=== PATIENT | male | born 1965 | race Caucasian/White ===

== ENCOUNTER 2017-04-20 11:40 | Inpatient (IN) | payer OTHER ==
[2017-04-20 12:54] VITALS: BMI 20.5
--- NOTE | 2017-04-20 14:31 | HP ---
CIWA Score - CIWA Score Nausea/Vomitin Muscle Tremors: 3 Anxiety: 3 Agitation: 3 Paroxysmal Sweats: 1-Minimal Palms Moist Orientation: 0-Oriented Tacttile Disturbances: 1-Very Mild Itch/Numbness Auditory Disturbances: 1-Very Mild Visual Disturbances: 1-Very Mild Sensitivity Headache: 2-Mild CIWA-Ar Total Score: 18 Admission ROS BHS - HPI Chief Complaint: i need help to stop drinking alcohol Allergies/Adverse Reactions: Allergies Allergy/AdvReac Type Severity Reaction Status Date / Time No Known Allergies Allergy Verified 04/20/17 13:16 History of Present Illness: this 51 years old male with alcohol dependence,seeking detox,never been ib detox before need help to stop drinking Exam Limitations: No Limitations - Ebola screening Have you traveled outside of the country in the last 21 days: No Have you been sick,other than usual withdrawal symptoms: No - Review of Systems Constitutional: Changes in sleep EENT: reports: No Symptoms Reported, Nose Congestion Respiratory: reports: No Symptoms reported Cardiac: reports: No Symptoms Reported GI: reports: Nausea, Abdominal cramping : reports: No Symptoms Reported Musculoskeletal: reports: Back Pain, Muscle Pain Integumentary: reports: Dryness Neuro: reports: Tremors Endocrine: reports: No Symptoms Reported Hematology: reports: No Symptoms Reported Psychiatric: reports: No Sypmtoms Reported Patient History - Patient Medical History Hx Anemia: Yes (no med) Hx Asthma: No Hx Chronic Obstructive Pulmonary Disease (COPD): No Hx Cancer: No Hx Cardiac Disorders: No Hx Congestive Heart Failure: No Hx Hypertension: No Hx Hypercholesterolemia: No Hx Pacemaker: No HX Cerebrovascular Accident: No Hx Seizures: No Hx Diabetes: No Hx Gastrointestinal Disorders: No Hx Liver Disease: No Hx Genitourinary Disorders: No Hx Sexually Transmitted Disorders: No Hx Renal Disease (ESRD): No Hx Thyroid Disease: No Hx Human Immunodeficiency Virus (HIV): No (hiv negative in 2010) Hx Hepatitis C: No Hx Depression: No Hx Suicide Attempt: No Hx Bipolar Disorder: No Hx Schizophrenia: No Other Medical History: no suicidal,no homicidal - Patient Surgical History Past Surgical History: No Hx Neurologic Surgery: No Hx Cataract Extraction: No Hx Cardiac Surgery: No Hx Lung Surgery: No Hx Breast Surgery: No Hx Breast Biopsy: No Hx Abdominal Surgery: No Hx Appendectomy: No Hx Cholecystectomy: No Hx Genitourinary Surgery: No Hx Section: No Hx Orthopedic Surgery: No Anesthesia Reaction: No - PPD History Previous Implant?: Yes Documented Results: Negative w/o proof Implanted On Prior [facility] Admission?: No PPD to be Administered?: Yes - Smoking Cessation Smoking history: Former smoker Have you smoked in the past 12 months: No If you are a former smoker, when did you quit?: 20 yrs. ago Hx Chewing Tobacco Use: No Initiated information on smoking cessation: No - Substance & Tx. History Hx Alcohol Use: Yes Hx Substance Use: No Substance Use Type: Alcohol Hx Substance Use Treatment: No - Substances Abused Alcohol-beer/vodka/rum Route: Oral Frequency: Daily Amount used: 3-6 pks./1 qt. Age of first use: 12 Date of Last Use: 04/20/17 Family Disease History - Family Disease History Family History: Denies Admission Physical Exam [facility] - Vital Signs Vital Signs: Vital Signs - 24 hr 04/20/17 12:52 Temperature 97.4 F L Pulse Rate 86 Respiratory 20 Rate Blood Pressure 118/79 - Physical General Appearance: Yes: Moderate Distress, Tremorous, Irritable, Sweating, Anxious HEENTM: Yes: Normal ENT Inspection, BRITTANY, Pharynx Normal Respiratory: Yes: Lungs Clear, Normal Breath Sounds, No Respiratory Distress Neck: Yes: Within Normal Limits Breast: Yes: Within Normal Limits Cardiology: Yes: Within Normal Limits, Regular Rhythm, Regular Rate, S1, S2 Abdominal: Yes: Within Normal Limits, Normal Bowel Sounds, Non Tender, Flat, Soft Genitourinary: Yes: Within Normal Limits Back: Yes: Muscle Spasm Musculoskeletal: Yes: full range of Motion, Back pain, Muscle Pain Extremities: Yes: Normal Range of Motion, Tremors Neurological: Yes: technician II-XII NML intact, Alert, Motor Strength 5/5 Integumentary: Yes: Dry Lymphatic: Yes: Within Normal Limits - Diagnostic (1) Alcohol dependence with uncomplicated withdrawal Current Visit: Yes Status: Acute Cleared for Admission [facility] - Detox or Rehab [facility] Level of Care: Medically Managed Detox Regimen/Protocol: Librium [facility] Breath Alcohol Content Breath Alcohol Content: 0.189 Urine Drug Screen - Results Drug Screen Negative: Yes
[2017-04-20] MEDS ORDERED: MAG HYDROX/AL HYDROX/SIMETH 30 ML UNIT-DOSE CUP PO PRN (14:39)
[2017-04-20] MEDS ORDERED: diphenhydrAMINE HCL 50 MG CAPSULE PO PRN (14:39)
[2017-04-20] MEDS ORDERED: MENTHOL/PHENOL 1 EACH UD MM PRN (14:39)
[2017-04-20] MEDS ORDERED: MAGNESIUM CITRATE 300 ML BOTTLE PO PRN (14:39)
[2017-04-20] MEDS ORDERED: ACETAMINOPHEN 325 MG TABLET (FP) PO PRN (14:39)
[2017-04-20] MEDS ORDERED: hydrOXYzine PAMOATE 50 MG CAPSULE (FP) PO PRN (14:39)
[2017-04-20] MEDS ORDERED: LOPERAMIDE HCL 2 MG CAPSULE PO PRN (14:39)
[2017-04-20] MEDS ORDERED: guaiFENesin/D-METHORPHAN HB 10 ML UNIT-DOSE CUPS PO PRN (14:39)
[2017-04-20] MEDS ORDERED: IBUPROFEN 400 MG TABLET (FP) PO PRN (14:39)
[2017-04-20] MEDS ORDERED: P-EPHED 60MG/TRIPROLIDI 2.5MG TABLET PO PRN (14:39)
[2017-04-20] MEDS ORDERED: MAGNESIUM HYDROX 2400MG/30ML ORAL SUSPENSION 30 ML CUP PO PRN (14:39)
[2017-04-20] MEDS: chlordiazePOXIDE HCL 25 MG CAPSULE PO PRN (15:25)
[2017-04-20 17:23] LABS: MCH 21.3 pg (25.7-33.7); MCHC 31.8 g/dl (32.0-35.9); MEAN PLT VOLUME 7.7 fl (7.5-11.1); PLATELET COUNT 222 K/MM3 (134-434); RDW 20.2 % (11.9-15.9); WHITE BLOOD COUNT 3.8 K/mm3 (4.0-10.0)
[2017-04-20 17:26] LABS: URINE APPEARANCE CLEAR; URINE BILIRUBIN NEGATIVE (NEGATIVE); URINE BLOOD NEGATIVE (NEGATIVE); URINE COLOR STRAW; URINE GLUCOSE (UA) NEGATIVE (NEGATIVE); URINE KETONE NEGATIVE (NEGATIVE); URINE LEUK ESTERASE NEGATIVE (NEGATIVE); URINE NITRITE NEGATIVE (NEGATIVE); URINE PROTEIN NEGATIVE (NEGATIVE); URINE UROBILINOGEN NEGATIVE mg/dL (0.2-1.0)
[2017-04-20] MEDS: chlordiazePOXIDE HCL 25 MG CAPSULE PO SCH ×2 (17:26→22:10)
[2017-04-20 17:48] LABS: ALBUMIN 3.3 g/dl (3.4-5.0); ALK PHOS 84 U/L (45-117); ANION GAP 6 (8-16); CALCIUM 8.1 mg/dL (8.5-10.1); CO2 33 mmol/L (21-32); GLUCOSE,RANDOM 92 mg/dL (74-106); SGOT/AST 37 U/L (15-37)
[2017-04-20 17:49] LABS: BILIRUBIN,TOTAL 1.5 mg/dL (0.2-1.0); CREATININE 0.7 mg/dL (0.7-1.3); SGPT/ALT 28 U/L (12-78); TOT PROT 7.3 g/dl (6.4-8.2)
[2017-04-20 21:29] LABS: HIV 1 & 2 AB NEGATIVE; HIV 1 AGp24 NEGATIVE
[2017-04-20 21:34] LABS: HYPOCHROMIA 2+
[2017-04-20 21:35] LABS: ANISOCYTOSIS 1+; MICROCYTOSIS 1+; PLATELET ESTIMATE ADEQUATE (NORMAL); POIKILOCYTOSIS 1+
[2017-04-20] MEDS: THIAMINE HCL 100 MG TABLET (FP) PO SCH (22:10)
[2017-04-21] MEDS: chlordiazePOXIDE HCL 25 MG CAPSULE PO PRN (02:37)
[2017-04-21] MEDS: chlordiazePOXIDE HCL 25 MG CAPSULE PO SCH ×4 (06:30→22:08)
--- NOTE | 2017-04-21 10:31 | PN ---
[facility] CIWA - CIWA Score Nausea/Vomitin-Int. Nausea w/Dry Heave Muscle Tremors: 4-Moderate,w/Arms Extend Anxiety: 4-Mod. Anxious/Guarded Agitation: 4-Moderately Restless Paroxysmal Sweats: 3 Orientation: 0-Oriented Tacttile Disturbances: 1-Very Mild Itch/Numbness Auditory Disturbances: 0-None Visual Disturbances: 0-None Headache: 1-Very Mild CIWA-Ar Total Score: 21 S Progress Note (SOAP) Subjective: nausea, sweats, itnerrupted sleep, anxiety, tremros, diarrhea, GERD, Objective: 04/21/17 10:29 Vital Signs - 24 hr 04/20/17 04/20/17 04/20/17 12:52 15:50 18:27 Temperature 97.4 F L 98.2 F 98.2 F Pulse Rate 86 93 H 86 Respiratory 20 18 18 Rate Blood Pressure 118/79 124/79 116/70 04/20/17 04/21/17 04/21/17 22:02 02:55 06:36 Temperature 97.5 F L 96.1 F L Pulse Rate 94 H 96 H 54 L Respiratory 20 18 16 Rate Blood Pressure 151/91 140/75 04/21/17 04/21/17 07:30 10:00 Temperature 96.8 F L Pulse Rate 74 78 Respiratory 18 18 Rate Blood Pressure 139/74 Laboratory Tests 04/20/17 04/20/17 04/20/17 14:00 14:00 14:00 WBC 3.8 L RBC 4.47 Hgb 9.5 L Hct 29.9 L MCV 67.0 L MCH 21.3 L MCHC 31.8 L RDW 20.2 H Plt Count 222 MPV 7.7 Hypochromia 2+ Platelet Estimate Adequate Poikilocytosis 1+ Basophilic Stippling Occasional Anisocytosis 1+ Microcytosis 1+ Sodium 144 Potassium 4.1 Chloride 105 Carbon Dioxide 33 H Anion Gap 6 L BUN 6 L Creatinine 0.7 Creat Clearance w eGFR > 60 Random Glucose 92 Calcium 8.1 L Total Bilirubin 1.5 H AST 37 ALT 28 Alkaline Phosphatase 84 Total Protein 7.3 Albumin 3.3 L Urine Color Urine Appearance Urine pH Ur Specific [place] Urine Protein Urine Glucose (UA) Urine Ketones Urine Blood Urine Nitrite Urine Bilirubin Urine Urobilinogen Ur Leukocyte Esterase HIV 1&2 Antibody Screen Negative HIV P24 Antigen Negative 04/20/17 15:00 WBC RBC Hgb Hct MCV MCH MCHC RDW Plt Count MPV Hypochromia Platelet Estimate Poikilocytosis Basophilic Stippling Anisocytosis Microcytosis Sodium Potassium Chloride Carbon Dioxide Anion Gap BUN Creatinine Creat Clearance w eGFR Random Glucose Calcium Total Bilirubin AST ALT Alkaline Phosphatase Total Protein Albumin Urine Color Straw Urine Appearance Clear Urine pH 6.0 Ur Specific [place] <= 1.005 Urine Protein Negative Urine Glucose (UA) Negative Urine Ketones Negative Urine Blood Negative Urine Nitrite Negative Urine Bilirubin Negative Urine Urobilinogen Negative Ur Leukocyte Esterase Negative HIV 1&2 Antibody Screen HIV P24 Antigen Assessment: 04/21/17 10:30 withdrawal sx, labs noted, aneami, hyperbiliruginemia, low WBC, no bleeding noted Plan: cont detox, fluids, encourage ambulation, iron supplements and ensure, repeat labs
[2017-04-21] MEDS: PRENATAL VITAMINS W/ FOLIC ACID TABLET (FP) PO SCH (10:39)
[2017-04-21] MEDS: PANTOPRAZOLE 40 MG TABLET (FP) PO SCH (12:10)
[2017-04-21] MEDS: FERROUS SO4 325 MG TABLET (FP) PO SCH ×2 (12:10→17:16)
--- NOTE | 2017-04-21 12:44 | EKG ---
Test Reason : Blood Pressure : / mmHG Vent. Rate : 081 BPM Atrial Rate : 081 BPM P-R Int : 140 ms QRS Dur : 096 ms QT Int : 400 ms P-R-T Axes : 043 041 053 degrees QTc Int : 464 ms NORMAL SINUS RHYTHM NORMAL ECG NO PREVIOUS ECGS AVAILABLE Confirmed by BUDDY SANCHEZ, VICTORINA ([id number]) on 04/21/2017 12:43:59 PM Referred By: Confirmed By:VICTORINA GOODWIN MD
[2017-04-21] MEDS: ZOLPIDEM TARTRATE 10 MG TABLET (PARK CARE ONLY) PO PRN (22:07)
[2017-04-21] MEDS: THIAMINE HCL 100 MG TABLET (FP) PO SCH (22:07)
[2017-04-22] MEDS: chlordiazePOXIDE HCL 25 MG CAPSULE PO SCH ×2 (06:14→11:04)
[2017-04-22] MEDS: FERROUS SO4 325 MG TABLET (FP) PO SCH ×3 (07:00→18:24)
[2017-04-22 09:42] LABS: BASOPHIL 0.4 % (0-2.0); EOSINOPHIL 2.2 % (0-4.5); MCHC 31.2 g/dl (32.0-35.9); MEAN CELL VOLUME 67.5 fl (80-96); MEAN PLT VOLUME 8.3 fl (7.5-11.1); NEUTROPHILS 49.9 % (42.8-82.8); PLATELET COUNT 191 K/MM3 (134-434); RDW 19.7 % (11.9-15.9); WHITE BLOOD COUNT 3.9 K/mm3 (4.0-10.0)
[2017-04-22 10:03] LABS: INR 1.23 (0.82-1.09); PROTHROMBIN TIME (PATIENT) 13.6 SEC (9.98-11.88)
[2017-04-22 10:17] LABS: ALBUMIN 3.6 g/dl (3.4-5.0); ALK PHOS 110 U/L (45-117); ANION GAP 9 (8-16); BILIRUBIN,TOTAL 2.6 mg/dL (0.2-1.0); CALCIUM 9.5 mg/dL (8.5-10.1); CO2 29 mmol/L (21-32); CREATININE 0.8 mg/dL (0.7-1.3); GLUCOSE,RANDOM 85 mg/dL (74-106); SGOT/AST 28 U/L (15-37); SGPT/ALT 28 U/L (12-78); TOT PROT 7.7 g/dl (6.4-8.2)
[2017-04-22] MEDS: PRENATAL VITAMINS W/ FOLIC ACID TABLET (FP) PO SCH (11:04)
[2017-04-22] MEDS: PANTOPRAZOLE 40 MG TABLET (FP) PO SCH (11:04)
--- NOTE | 2017-04-22 13:31 | PN ---
S CIWA - CIWA Score Nausea/Vomitin Muscle Tremors: 4-Moderate,w/Arms Extend Anxiety: 4-Mod. Anxious/Guarded Agitation: 4-Moderately Restless Paroxysmal Sweats: 3 Orientation: 0-Oriented Tacttile Disturbances: 1-Very Mild Itch/Numbness Auditory Disturbances: 0-None Visual Disturbances: 0-None Headache: 1-Very Mild CIWA-Ar Total Score: 20 BHS Progress Note (SOAP) Subjective: nausea, sweats, interrutped sleep, anxiety, trmeors Objective: 04/22/17 13:30 Vital Signs - 24 hr 04/21/17 04/21/17 04/21/17 15:58 17:10 22:00 Temperature 98.4 F 99 F 97 F L Pulse Rate 104 H 102 H 108 H Respiratory 20 20 20 Rate Blood Pressure 130/72 137/106 124/84 04/22/17 04/22/17 04/22/17 00:30 03:30 06:39 Temperature 97.6 F Pulse Rate 97 H Respiratory 18 18 18 Rate Blood Pressure 108/71 04/22/17 09:34 Temperature Pulse Rate 98 H Respiratory 18 Rate Blood Pressure 123/84 Laboratory Tests 04/20/17 04/20/17 04/20/17 14:00 14:00 14:00 WBC 3.8 L RBC 4.47 Hgb 9.5 L Hct 29.9 L MCV 67.0 L MCH 21.3 L MCHC 31.8 L RDW 20.2 H Plt Count 222 MPV 7.7 Neutrophils % Lymphocytes % Monocytes % Eosinophils % Basophils % Hypochromia 2+ Platelet Estimate Adequate Poikilocytosis 1+ Basophilic Stippling Occasional Anisocytosis 1+ Microcytosis 1+ INR Sodium 144 Potassium 4.1 Chloride 105 Carbon Dioxide 33 H Anion Gap 6 L BUN 6 L Creatinine 0.7 Creat Clearance w eGFR > 60 Random Glucose 92 Calcium 8.1 L Total Bilirubin 1.5 H AST 37 ALT 28 Alkaline Phosphatase 84 Total Protein 7.3 Albumin 3.3 L Urine Color Urine Appearance Urine pH Ur Specific [place] Urine Protein Urine Glucose (UA) Urine Ketones Urine Blood Urine Nitrite Urine Bilirubin Urine Urobilinogen Ur Leukocyte Esterase RPR Titer HIV 1&2 Antibody Screen Negative HIV P24 Antigen Negative 04/20/17 04/20/17 04/22/17 14:00 15:00 07:00 WBC 3.9 L RBC 5.20 Hgb 10.9 L D Hct 35.1 L D MCV 67.5 L MCH 21.0 L MCHC 31.2 L RDW 19.7 H Plt Count 191 MPV 8.3 Neutrophils % 49.9 Lymphocytes % 40.9 H Monocytes % 6.6 Eosinophils % 2.2 Basophils % 0.4 Hypochromia Platelet Estimate Poikilocytosis Basophilic Stippling Anisocytosis Microcytosis INR Sodium Potassium Chloride Carbon Dioxide Anion Gap BUN Creatinine Creat Clearance w eGFR Random Glucose Calcium Total Bilirubin AST ALT Alkaline Phosphatase Total Protein Albumin Urine Color Straw Urine Appearance Clear Urine pH 6.0 Ur Specific [place] <= 1.005 Urine Protein Negative Urine Glucose (UA) Negative Urine Ketones Negative Urine Blood Negative Urine Nitrite Negative Urine Bilirubin Negative Urine Urobilinogen Negative Ur Leukocyte Esterase Negative RPR Titer Nonreactive HIV 1&2 Antibody Screen HIV P24 Antigen 04/22/17 04/22/17 07:00 07:00 WBC RBC Hgb Hct MCV MCH MCHC RDW Plt Count MPV Neutrophils % Lymphocytes % Monocytes % Eosinophils % Basophils % Hypochromia Platelet Estimate Poikilocytosis Basophilic Stippling Anisocytosis Microcytosis INR 1.23 H Sodium 141 Potassium 4.0 Chloride 103 Carbon Dioxide 29 Anion Gap 9 BUN 8 D Creatinine 0.8 Creat Clearance w eGFR > 60 Random Glucose 85 Calcium 9.5 Total Bilirubin 2.6 H D AST 28 D ALT 28 Alkaline Phosphatase 110 D Total Protein 7.7 Albumin 3.6 Urine Color Urine Appearance Urine pH Ur Specific [place] Urine Protein Urine Glucose (UA) Urine Ketones Urine Blood Urine Nitrite Urine Bilirubin Urine Urobilinogen Ur Leukocyte Esterase RPR Titer HIV 1&2 Antibody Screen HIV P24 Antigen Assessment: 04/22/17 13:30 withangelina sx, labs noted Plan: cont deto, iron supplements, fluids, encourage ambulation
[2017-04-22] MEDS ORDERED: DOCUSATE SODIUM 100 MG CAPSULE (FP) PO ONE (15:00)
[2017-04-22] MEDS: chlordiazePOXIDE 5 MG CAPSULE PO SCH ×2 (18:24→22:17)
[2017-04-22] MEDS: DOCUSATE SODIUM 100 MG CAPSULE (FP) PO SCH (22:17)
[2017-04-22] MEDS: ZOLPIDEM TARTRATE 10 MG TABLET (PARK CARE ONLY) PO PRN (22:17)
[2017-04-22] MEDS: THIAMINE HCL 100 MG TABLET (FP) PO SCH (22:17)
[2017-04-23] MEDS: chlordiazePOXIDE 5 MG CAPSULE PO SCH ×2 (05:38→10:48)
[2017-04-23] MEDS: FERROUS SO4 325 MG TABLET (FP) PO SCH ×3 (07:28→17:32)
[2017-04-23] MEDS: PANTOPRAZOLE 40 MG TABLET (FP) PO SCH (10:48)
[2017-04-23] MEDS: PRENATAL VITAMINS W/ FOLIC ACID TABLET (FP) PO SCH (10:48)
--- NOTE | 2017-04-23 12:03 | PN ---
[facility] Progress Note (SOAP) Subjective: ALERT,IRRITABLE,ANXIOUS,INTERRUPTED SLEEP Objective: 04/23/17 12:02 Vital Signs Temperature 97.7 F 04/23/17 10:00 Pulse Rate 99 H 04/23/17 10:00 Respiratory Rate 20 04/23/17 10:00 Blood Pressure 111/77 04/23/17 10:00 O2 Sat by Pulse Oximetry (%) Laboratory Last Values WBC 3.9 K/mm3 (4.0-10.0) L 04/22/17 07:00 RBC 5.20 M/mm3 (4.00-5.60) 04/22/17 07:00 Hgb 10.9 GM/dL (11.7-16.9) L D 04/22/17 07:00 Hct 35.1 % (35.4-49) L D 04/22/17 07:00 MCV 67.5 fl (80-96) L 04/22/17 07:00 MCH 21.0 pg (25.7-33.7) L 04/22/17 07:00 MCHC 31.2 g/dl (32.0-35.9) L 04/22/17 07:00 RDW 19.7 % (11.9-15.9) H 04/22/17 07:00 Plt Count 191 K/MM3 (134-434) 04/22/17 07:00 MPV 8.3 fl (7.5-11.1) 04/22/17 07:00 Neutrophils % 49.9 % (42.8-82.8) 04/22/17 07:00 Lymphocytes % 40.9 % (8-40) H 04/22/17 07:00 Monocytes % 6.6 % (3.8-10.2) 04/22/17 07:00 Eosinophils % 2.2 % (0-4.5) 04/22/17 07:00 Basophils % 0.4 % (0-2.0) 04/22/17 07:00 Hypochromia 2+ 04/20/17 14:00 Platelet Estimate Adequate (NORMAL) 04/20/17 14:00 Poikilocytosis 1+ 04/20/17 14:00 Basophilic Stippling Occasional 04/20/17 14:00 Anisocytosis 1+ 04/20/17 14:00 Microcytosis 1+ 04/20/17 14:00 INR 1.23 (0.82-1.09) H 04/22/17 07:00 Sodium 141 mmol/L (136-145) 04/22/17 07:00 Potassium 4.0 mmol/L (3.5-5.1) 04/22/17 07:00 Chloride 103 mmol/L (98-107) 04/22/17 07:00 Carbon Dioxide 29 mmol/L (21-32) 04/22/17 07:00 Anion Gap 9 (8-16) 04/22/17 07:00 BUN 8 mg/dL (7-18) D 04/22/17 07:00 Creatinine 0.8 mg/dL (0.7-1.3) 04/22/17 07:00 Creat Clearance w eGFR > 60 (>60) 04/22/17 07:00 Random Glucose 85 mg/dL (74-106) 04/22/17 07:00 Calcium 9.5 mg/dL (8.5-10.1) 04/22/17 07:00 Total Bilirubin 2.6 mg/dL (0.2-1.0) H D 04/22/17 07:00 AST 28 U/L (15-37) D 04/22/17 07:00 ALT 28 U/L (12-78) 04/22/17 07:00 Alkaline Phosphatase 110 U/L (45-117) D 04/22/17 07:00 Total Protein 7.7 g/dl (6.4-8.2) 04/22/17 07:00 Albumin 3.6 g/dl (3.4-5.0) 04/22/17 07:00 Urine Color Straw 04/20/17 15:00 Urine Appearance Clear 04/20/17 15:00 Urine pH 6.0 (5.0-8.0) 04/20/17 15:00 Ur Specific [place] <= 1.005 (1.005-1.025) 04/20/17 15:00 Urine Protein Negative (NEGATIVE) 04/20/17 15:00 Urine Glucose (UA) Negative (NEGATIVE) 04/20/17 15:00 Urine Ketones Negative (NEGATIVE) 04/20/17 15:00 Urine Blood Negative (NEGATIVE) 04/20/17 15:00 Urine Nitrite Negative (NEGATIVE) 04/20/17 15:00 Urine Bilirubin Negative (NEGATIVE) 04/20/17 15:00 Urine Urobilinogen Negative mg/dL (0.2-1.0) 04/20/17 15:00 Ur Leukocyte Esterase Negative (NEGATIVE) 04/20/17 15:00 RPR Titer Nonreactive (NONREACTIVE) 04/20/17 14:00 HIV 1&2 Antibody Screen Negative 04/20/17 14:00 HIV P24 Antigen Negative 04/20/17 14:00 04/23/17 12:04 Assessment: 04/23/17 12:03 WITHDRAWAL SYMPTOM 04/23/17 12:04 Plan: CONTINUE DETOX,DISCHARGE IN AM
[2017-04-23] MEDS: chlordiazePOXIDE HCL 10 MG CAPSULE PO SCH ×2 (17:32→22:34)
[2017-04-23] MEDS: DOCUSATE SODIUM 100 MG CAPSULE (FP) PO SCH (22:34)
[2017-04-23] MEDS: THIAMINE HCL 100 MG TABLET (FP) PO SCH (22:34)
[2017-04-24] MEDS: chlordiazePOXIDE HCL 10 MG CAPSULE PO SCH (05:38)
[2017-04-24 06:25] VITALS: BP 119/80; PULSE 82; TEMP 98.4
[2017-04-24] MEDS: FERROUS SO4 325 MG TABLET (FP) PO SCH (07:16)
--- NOTE | 2017-04-24 09:29 | DS ---
[facility] Detox Discharge Summary Admission Date: 04/20/17 Discharge Date: 04/24/17 - History Present History: Alcohol Dependence Pertinent Past History: insomnia, depression, anxiety, anemia - Physical Exam Results Vital Signs: Vital Signs Temperature 98.4 F 04/24/17 06:00 Pulse Rate 82 04/24/17 06:00 Respiratory Rate 18 04/24/17 06:00 Blood Pressure 119/80 04/24/17 06:00 O2 Sat by Pulse Oximetry (%) Laboratory Tests 04/20/17 04/20/17 04/20/17 14:00 14:00 14:00 WBC 3.8 L RBC 4.47 Hgb 9.5 L Hct 29.9 L MCV 67.0 L MCH 21.3 L MCHC 31.8 L RDW 20.2 H Plt Count 222 MPV 7.7 Neutrophils % Lymphocytes % Monocytes % Eosinophils % Basophils % Hypochromia 2+ Platelet Estimate Adequate Poikilocytosis 1+ Basophilic Stippling Occasional Anisocytosis 1+ Microcytosis 1+ INR Sodium 144 Potassium 4.1 Chloride 105 Carbon Dioxide 33 H Anion Gap 6 L BUN 6 L Creatinine 0.7 Creat Clearance w eGFR > 60 Random Glucose 92 Calcium 8.1 L Total Bilirubin 1.5 H AST 37 ALT 28 Alkaline Phosphatase 84 Total Protein 7.3 Albumin 3.3 L Urine Color Urine Appearance Urine pH Ur Specific [place] Urine Protein Urine Glucose (UA) Urine Ketones Urine Blood Urine Nitrite Urine Bilirubin Urine Urobilinogen Ur Leukocyte Esterase RPR Titer HIV 1&2 Antibody Screen Negative HIV P24 Antigen Negative 04/20/17 04/20/17 04/22/17 14:00 15:00 07:00 WBC 3.9 L RBC 5.20 Hgb 10.9 L D Hct 35.1 L D MCV 67.5 L MCH 21.0 L MCHC 31.2 L RDW 19.7 H Plt Count 191 MPV 8.3 Neutrophils % 49.9 Lymphocytes % 40.9 H Monocytes % 6.6 Eosinophils % 2.2 Basophils % 0.4 Hypochromia Platelet Estimate Poikilocytosis Basophilic Stippling Anisocytosis Microcytosis INR Sodium Potassium Chloride Carbon Dioxide Anion Gap BUN Creatinine Creat Clearance w eGFR Random Glucose Calcium Total Bilirubin AST ALT Alkaline Phosphatase Total Protein Albumin Urine Color Straw Urine Appearance Clear Urine pH 6.0 Ur Specific [place] <= 1.005 Urine Protein Negative Urine Glucose (UA) Negative Urine Ketones Negative Urine Blood Negative Urine Nitrite Negative Urine Bilirubin Negative Urine Urobilinogen Negative Ur Leukocyte Esterase Negative RPR Titer Nonreactive HIV 1&2 Antibody Screen HIV P24 Antigen 04/22/17 04/22/17 07:00 07:00 WBC RBC Hgb Hct MCV MCH MCHC RDW Plt Count MPV Neutrophils % Lymphocytes % Monocytes % Eosinophils % Basophils % Hypochromia Platelet Estimate Poikilocytosis Basophilic Stippling Anisocytosis Microcytosis INR 1.23 H Sodium 141 Potassium 4.0 Chloride 103 Carbon Dioxide 29 Anion Gap 9 BUN 8 D Creatinine 0.8 Creat Clearance w eGFR > 60 Random Glucose 85 Calcium 9.5 Total Bilirubin 2.6 H D AST 28 D ALT 28 Alkaline Phosphatase 110 D Total Protein 7.7 Albumin 3.6 Urine Color Urine Appearance Urine pH Ur Specific [place] Urine Protein Urine Glucose (UA) Urine Ketones Urine Blood Urine Nitrite Urine Bilirubin Urine Urobilinogen Ur Leukocyte Esterase RPR Titer HIV 1&2 Antibody Screen HIV P24 Antigen iron deficiency anemia Pertinent Admission Physical Exam Findings: withdrawal sx - Treatment Hospital Course: Detox Protocol Followed, Detoxed Safely, Responded well, Discharged Condition Good, Rehab Referral Accepted - Medication Discharge Medications: Ambulatory Orders Docusate Sodium [Colace -] 300 mg PO HS #30 tab-cap MDD 3 04/24/17 Ferrous Sulfate [Feosol] 325 mg PO TIDCM #90 tab MDD 3 04/24/17 - Diagnosis (1) Alcohol dependence with uncomplicated withdrawal Current Visit: Yes Status: Chronic (2) Microcytic anemia Current Visit: Yes Status: Chronic
[2017-04-24] MEDS: PRENATAL VITAMINS W/ FOLIC ACID TABLET (FP) PO SCH (09:46)
== END 2017-04-24 09:53 | disposition home or self-care (01) | DRG 775 ==
LOC: YASAS 11:40 → Y6N 14:44
PROVIDERS: ADMIT Internal Medicine Addiction Medicine; ATTEND Internal Medicine Addiction Medicine
PROC: HZ2ZZZZ Detoxification Services for Substance Abuse Treatment (ICD-10-PCS; principal; 2017-04-20)
DX: F10.230 Alcohol dependence with withdrawal, uncomplicated (principal); D50.9 Iron deficiency anemia, unspecified; D72.829 Elevated white blood cell count, unspecified; E80.6 Other disorders of bilirubin metabolism; Z87.891 Personal history of nicotine dependence
CPT/HCPCS: 36415; 80053; 81003; 85025; 85027; 85610; 86593; 87389; 93005; 93010

== ENCOUNTER 2017-06-29 09:59 | Inpatient (IN) | payer OTHER ==
[2017-06-29 12:13] VITALS: BMI 22.6
--- NOTE | 2017-06-29 16:19 | HP ---
[facility] Rehab Assess/Revision - Admission History Admitted to Rehab from: [facility] Date of Admission to Rehab: 06/29/2017 - Vital signs Vital Signs: Vital Signs Period Temp Pulse Resp BP Sys/Mehta Pulse Ox Last 24 Hr 98.9 F 96 20 118/70 - Findings Detox History & Physical reviewed: Yes Concur with findings: Yes Inpatient Rehab Admission - Initial Determination Are CD services needed?: Yes Free of communicable disease: Yes Not in need of hospitalization: Yes - Rehab Admission Criteria Comorbidities: Yes Patient is meeting Inpatient Rehab admission criteria:: Yes
[2017-06-29] MEDS ORDERED: MENTHOL/PHENOL 1 EACH UD MM PRN (16:20)
[2017-06-29] MEDS ORDERED: guaiFENesin/D-METHORPHAN HB 10 ML UNIT-DOSE CUPS PO PRN (16:20)
[2017-06-29] MEDS ORDERED: MAGNESIUM CITRATE 300 ML BOTTLE PO PRN (16:20)
[2017-06-29] MEDS ORDERED: MAG HYDROX/AL HYDROX/SIMETH 30 ML UNIT-DOSE CUP PO PRN (16:20)
[2017-06-29] MEDS ORDERED: MAGNESIUM HYDROX 2400MG/30ML ORAL SUSPENSION 30 ML CUP PO PRN (16:20)
[2017-06-29] MEDS ORDERED: P-EPHED 60MG/TRIPROLIDI 2.5MG TABLET PO PRN (16:20)
[2017-06-29] MEDS ORDERED: hydrOXYzine PAMOATE 50 MG CAPSULE (FP) PO PRN (16:20)
[2017-06-29] MEDS ORDERED: LOPERAMIDE HCL 2 MG CAPSULE PO PRN (16:20)
[2017-06-29] MEDS ORDERED: ACETAMINOPHEN 325 MG TABLET (FP) PO PRN (16:20)
[2017-06-29] MEDS: THIAMINE HCL 100 MG TABLET (FP) PO SCH (21:20)
[2017-06-29] MEDS: DOCUSATE SODIUM 100 MG CAPSULE (FP) PO SCH (21:21)
[2017-06-29] MEDS: FERROUS SO4 325 MG TABLET (FP) PO SCH (21:21)
[2017-06-29 23:23] LABS: URINE APPEARANCE CLEAR; URINE BILIRUBIN NEGATIVE (NEGATIVE); URINE BLOOD NEGATIVE (NEGATIVE); URINE COLOR AMBER; URINE GLUCOSE (UA) NEGATIVE (NEGATIVE); URINE KETONE NEGATIVE (NEGATIVE); URINE NITRITE NEGATIVE (NEGATIVE); URINE PROTEIN NEGATIVE (NEGATIVE); URINE UROBILINOGEN 4.0 E.U/dl mg/dL (0.2-1.0)
[2017-06-30] MEDS: IBUPROFEN 400 MG TABLET (FP) PO PRN ×2 (06:06→20:45)
[2017-06-30] MEDS: FERROUS SO4 325 MG TABLET (FP) PO SCH ×3 (07:30→16:51)
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
[2017-06-30 09:58] LABS: MCH 20.8 pg (25.7-33.7); MEAN CELL VOLUME 67.2 fl (80-96); MEAN PLT VOLUME 8.3 fl (7.5-11.1); PLATELET COUNT 204 K/MM3 (134-434); RDW 16.3 % (11.9-15.9)
[2017-06-30 10:17] LABS: ALBUMIN 3.3 g/dl (3.4-5.0)
[2017-06-30] MEDS: PRENATAL VITAMINS W/ FOLIC ACID TABLET (FP) PO SCH (10:19)
[2017-06-30 10:21] LABS: ALK PHOS 112 U/L (45-117); ANION GAP 7 (8-16); BILIRUBIN,TOTAL 2.1 mg/dL (0.2-1.0); CALCIUM 8.4 mg/dL (8.5-10.1); CO2 29 mmol/L (21-32); CREATININE 0.9 mg/dL (0.7-1.3); GLUCOSE,RANDOM 119 mg/dL (74-106); SGOT/AST 26 U/L (15-37); SGPT/ALT 25 U/L (12-78); TOT PROT 7.2 g/dl (6.4-8.2)
[2017-06-30 17:48] LABS: URINE LEUK ESTERASE Negative (NEGATIVE)
[2017-06-30] MEDS: DOCUSATE SODIUM 100 MG CAPSULE (FP) PO SCH (21:18)
[2017-06-30] MEDS: THIAMINE HCL 100 MG TABLET (FP) PO SCH (21:18)
[2017-07-01] MEDS: FERROUS SO4 325 MG TABLET (FP) PO SCH ×3 (07:05→17:27)
[2017-07-01] MEDS: PRENATAL VITAMINS W/ FOLIC ACID TABLET (FP) PO SCH (10:51)
--- NOTE | 2017-07-01 16:41 | EKG ---
Test Reason : Blood Pressure : / mmHG Vent. Rate : 079 BPM Atrial Rate : 079 BPM P-R Int : 148 ms QRS Dur : 100 ms QT Int : 400 ms P-R-T Axes : 049 052 056 degrees QTc Int : 458 ms NORMAL SINUS RHYTHM CANNOT RULE OUT ANTERIOR INFARCT (CITED ON OR BEFORE 29-JUN-2017) ABNORMAL ECG WHEN COMPARED WITH ECG OF 29-JUN-2017 22:59, NO SIGNIFICANT CHANGE WAS FOUND Confirmed by LARA KIRK MD ([id number]) on 07/01/2017 4:41:00 PM Referred By: Confirmed By:LARA KIRK MD
[2017-07-01] MEDS: IBUPROFEN 400 MG TABLET (FP) PO PRN (17:28)
[2017-07-01] MEDS: DOCUSATE SODIUM 100 MG CAPSULE (FP) PO SCH (22:08)
[2017-07-01] MEDS: THIAMINE HCL 100 MG TABLET (FP) PO SCH (22:09)
[2017-07-02] MEDS: IBUPROFEN 400 MG TABLET (FP) PO PRN ×2 (06:09→20:34)
[2017-07-02] MEDS: FERROUS SO4 325 MG TABLET (FP) PO SCH ×3 (07:17→17:11)
[2017-07-02] MEDS: PRENATAL VITAMINS W/ FOLIC ACID TABLET (FP) PO SCH (09:59)
--- NOTE | 2017-07-02 12:02 | EKG ---
Test Reason : Blood Pressure : / mmHG Vent. Rate : 074 BPM Atrial Rate : 074 BPM P-R Int : 148 ms QRS Dur : 098 ms QT Int : 414 ms P-R-T Axes : 060 035 046 degrees QTc Int : 459 ms NORMAL SINUS RHYTHM POSSIBLE ANTERIOR INFARCT , AGE UNDETERMINED ABNORMAL ECG WHEN COMPARED WITH ECG OF 23-JUN-2017 20:51, BORDERLINE CRITERIA FOR ANTERIOR INFARCT ARE NOW PRESENT Confirmed by LUIS A SAVAGE MD ([id number]) on 07/02/2017 12:02:24 PM Referred By: Confirmed By:LIUS A SAVAGE MD
[2017-07-02] MEDS: DOCUSATE SODIUM 100 MG CAPSULE (FP) PO SCH (21:22)
[2017-07-02] MEDS: THIAMINE HCL 100 MG TABLET (FP) PO SCH (21:22)
[2017-07-03] MEDS: IBUPROFEN 400 MG TABLET (FP) PO PRN ×2 (05:58→21:20)
[2017-07-03] MEDS: FERROUS SO4 325 MG TABLET (FP) PO SCH ×3 (07:14→16:56)
[2017-07-03] MEDS: PRENATAL VITAMINS W/ FOLIC ACID TABLET (FP) PO SCH (09:55)
[2017-07-03] MEDS: DOCUSATE SODIUM 100 MG CAPSULE (FP) PO SCH (21:19)
[2017-07-03] MEDS: THIAMINE HCL 100 MG TABLET (FP) PO SCH (21:19)
[2017-07-04] MEDS: IBUPROFEN 400 MG TABLET (FP) PO PRN ×2 (06:00→21:37)
[2017-07-04] MEDS: FERROUS SO4 325 MG TABLET (FP) PO SCH ×3 (07:23→17:04)
[2017-07-04] MEDS: PRENATAL VITAMINS W/ FOLIC ACID TABLET (FP) PO SCH (09:45)
[2017-07-04] MEDS: DOCUSATE SODIUM 100 MG CAPSULE (FP) PO SCH (21:37)
[2017-07-04] MEDS: THIAMINE HCL 100 MG TABLET (FP) PO SCH (21:38)
[2017-07-05] MEDS: FERROUS SO4 325 MG TABLET (FP) PO SCH ×3 (07:01→16:45)
[2017-07-05] MEDS: PRENATAL VITAMINS W/ FOLIC ACID TABLET (FP) PO SCH (09:48)
[2017-07-05] MEDS: DOCUSATE SODIUM 100 MG CAPSULE (FP) PO SCH (21:29)
[2017-07-05] MEDS: IBUPROFEN 400 MG TABLET (FP) PO PRN (21:29)
[2017-07-05] MEDS: THIAMINE HCL 100 MG TABLET (FP) PO SCH (21:29)
[2017-07-06] MEDS: FERROUS SO4 325 MG TABLET (FP) PO SCH ×3 (07:42→17:15)
[2017-07-06] MEDS: PRENATAL VITAMINS W/ FOLIC ACID TABLET (FP) PO SCH (09:47)
[2017-07-06] MEDS: THIAMINE HCL 100 MG TABLET (FP) PO SCH (21:43)
[2017-07-06] MEDS: DOCUSATE SODIUM 100 MG CAPSULE (FP) PO SCH (21:43)
[2017-07-06] MEDS: IBUPROFEN 400 MG TABLET (FP) PO PRN (21:44)
[2017-07-07] MEDS: IBUPROFEN 400 MG TABLET (FP) PO PRN ×2 (06:12→21:16)
[2017-07-07] MEDS: FERROUS SO4 325 MG TABLET (FP) PO SCH ×3 (07:12→16:53)
[2017-07-07] MEDS: PRENATAL VITAMINS W/ FOLIC ACID TABLET (FP) PO SCH (09:41)
[2017-07-07] MEDS: THIAMINE HCL 100 MG TABLET (FP) PO SCH (21:14)
[2017-07-07] MEDS: DOCUSATE SODIUM 100 MG CAPSULE (FP) PO SCH (21:14)
[2017-07-08] MEDS: IBUPROFEN 400 MG TABLET (FP) PO PRN ×2 (06:26→22:25)
[2017-07-08] MEDS: FERROUS SO4 325 MG TABLET (FP) PO SCH ×3 (08:08→17:04)
[2017-07-08] MEDS: PRENATAL VITAMINS W/ FOLIC ACID TABLET (FP) PO SCH (09:56)
[2017-07-08] MEDS: DOCUSATE SODIUM 100 MG CAPSULE (FP) PO SCH (21:25)
[2017-07-08] MEDS: THIAMINE HCL 100 MG TABLET (FP) PO SCH (21:25)
[2017-07-09] MEDS: IBUPROFEN 400 MG TABLET (FP) PO PRN ×2 (06:02→21:18)
[2017-07-09] MEDS: FERROUS SO4 325 MG TABLET (FP) PO SCH ×3 (07:27→16:35)
[2017-07-09] MEDS: PRENATAL VITAMINS W/ FOLIC ACID TABLET (FP) PO SCH (09:39)
[2017-07-09] MEDS: DOCUSATE SODIUM 100 MG CAPSULE (FP) PO SCH (21:19)
[2017-07-09] MEDS: THIAMINE HCL 100 MG TABLET (FP) PO SCH (21:19)
[2017-07-10] MEDS: IBUPROFEN 400 MG TABLET (FP) PO PRN ×3 (06:08→21:14)
[2017-07-10] MEDS: FERROUS SO4 325 MG TABLET (FP) PO SCH ×3 (07:10→17:57)
[2017-07-10] MEDS: PRENATAL VITAMINS W/ FOLIC ACID TABLET (FP) PO SCH (10:01)
[2017-07-10] MEDS: DOCUSATE SODIUM 100 MG CAPSULE (FP) PO SCH (21:13)
[2017-07-10] MEDS: THIAMINE HCL 100 MG TABLET (FP) PO SCH (21:14)
[2017-07-11] MEDS: IBUPROFEN 400 MG TABLET (FP) PO PRN ×2 (05:57→21:01)
[2017-07-11] MEDS: FERROUS SO4 325 MG TABLET (FP) PO SCH ×3 (07:12→17:21)
[2017-07-11] MEDS: PRENATAL VITAMINS W/ FOLIC ACID TABLET (FP) PO SCH (09:39)
[2017-07-11] MEDS: THIAMINE HCL 100 MG TABLET (FP) PO SCH (21:00)
[2017-07-11] MEDS: DOCUSATE SODIUM 100 MG CAPSULE (FP) PO SCH (21:02)
[2017-07-12] MEDS: IBUPROFEN 400 MG TABLET (FP) PO PRN ×3 (06:20→23:22)
[2017-07-12] MEDS: FERROUS SO4 325 MG TABLET (FP) PO SCH ×3 (07:15→17:15)
--- NOTE | 2017-07-12 09:51 | PN ---
Psychiatric Progress Note Vital Signs: Vital Signs Period Temp Pulse Resp BP Sys/Mehta Pulse Ox Last 24 Hr 97.7 F 84 18-18 117/82 Date of Session: 07/12/17 Chief Complaint:: Discharge Note HPI: Patient addressing Alcohol Dependence comorbid with Alcohol-induced Mood Disorder ROS: Arthritis, right knee pain were medically managed Current Medications: Active Medications Generic Name Dose Route Start Last Admin Trade Name Freq PRN Reason Stop Dose Admin Acetaminophen 650 mg 06/29/17 16:20 Tylenol - PO Q4H PRN PAIN Al Hydroxide/Mg Hydroxide 30 ml 06/29/17 16:20 Mylanta Oral Suspension - PO Q6H PRN DYSPEPSIA Docusate Sodium 300 mg 06/29/17 22:00 07/11/17 21:02 Colace - PO 300 mg HS SHANON Administration Eucalyptus/Menthol/Phenol/Sorbitol 1 each 06/29/17 16:20 Cepastat Lozenge - MM Q4H PRN SORE THROAT Ferrous Sulfate 325 mg 06/29/17 17:30 07/12/17 07:15 Feosol - PO 325 mg TIDCM SHANON Administration Guaifenesin 10 ml 06/29/17 16:20 Robitussin Dm - PO Q6H PRN COUGH Hydroxyzine Pamoate 50 mg 06/29/17 16:20 Vistaril - PO Q4H PRN AGITATION Ibuprofen 400 mg 06/29/17 16:20 07/12/17 06:20 Motrin - PO 400 mg Q6H PRN Administration SEVERE PAIN Loperamide HCl 4 mg 06/29/17 16:20 Imodium - PO Q6H PRN DIARRHEA Magnesium Citrate 300 ml 06/29/17 16:20 Citroma - PO Q48H PRN CONSTIPATION Magnesium Hydroxide 30 ml 06/29/17 16:20 Milk Of Magnesia - PO DAILY PRN CONSTIPATION Multivit/Folic Acid/Iron 1 tab 06/30/17 10:00 07/11/17 09:39 Vitamins (Sjr) - PO 1 tab DAILY SHANON Administration Pseudoephedrine/Triprolidine 1 combo 06/29/17 16:20 Actifed - PO TID PRN NASAL CONGESTION Thiamine HCl 100 mg 06/29/17 22:00 07/11/17 21:00 Vitamin B1 - PO 100 mg HS SHANON Administration Current Side Effect: No Lab tests ordered: Yes Lab tests reviewed: Yes Provider note:: Patient will complete this program on 07/13/17. He has met his treatment goals and will continue to address his issues in outpatient treatment at [facility] at [address] [place] [address]. He verbalized understanding of the negative consequences of his addiction and the need to comply with his outpatient treatment as well as making meetings. He is stable for discharge on 07/13/17 Total face to face time:: 35 Mental Status Exam - Mental Status Exam Alert and Oriented to: Time, Place, Person Cognitive Function: Fair Patient Appearance: Well Groomed Mood: Hopeful, Euthymic Patient Behavior: Cooperative Speech Pattern: Clear Voice Loudness: Normal Thought Process: Intact, Goal Oriented Thought Disorder: Not Present Hallucinations: Denies Suicidal Ideation: Denies Homicidal Ideation: Denies Insight/Judgement: Fair Sleep: Well Appetite: Good Muscle strength/Tone: Normal Gait/Station: Normal Psychiatric Treatment Plan - Problem List (1) Alcohol dependence Current Visit: Yes (2) Alcohol-induced mood disorder Current Visit: No (3) Arthritis Current Visit: No (4) Chronic shoulder pain Current Visit: No (5) Right knee pain Current Visit: No (6) Microcytic anemia Current Visit: No Initial treatment plan: Patient will be discharged tomorrow and referred to [facility] for outpatient treatment
[2017-07-12] MEDS: PRENATAL VITAMINS W/ FOLIC ACID TABLET (FP) PO SCH (09:53)
[2017-07-12] MEDS: THIAMINE HCL 100 MG TABLET (FP) PO SCH (21:21)
[2017-07-12] MEDS: DOCUSATE SODIUM 100 MG CAPSULE (FP) PO SCH (21:21)
[2017-07-13] MEDS: IBUPROFEN 400 MG TABLET (FP) PO PRN (06:05)
[2017-07-13 06:38] VITALS: BP 112/77; PULSE 66; TEMP 98.3
[2017-07-13] MEDS: FERROUS SO4 325 MG TABLET (FP) PO SCH (07:04)
[2017-07-13] MEDS: PRENATAL VITAMINS W/ FOLIC ACID TABLET (FP) PO SCH (09:26)
== END 2017-07-13 09:55 | disposition home or self-care (01) | DRG 772 ==
LOC: YASAS 09:59 → Y3W 14:10
PROVIDERS: ADMIT Psychiatry & Neurology Psychiatry; ATTEND Psychiatry & Neurology Psychiatry
PROC: HZ42ZZZ Group Counseling for Substance Abuse Treatment, Cognitive-Behavioral (ICD-10-PCS; principal; 2017-06-29)
DX: F10.20 Alcohol dependence, uncomplicated (principal); F10.24 Alcohol dependence with alcohol-induced mood disorder; F32.9 Major depressive disorder, single episode, unspecified; G89.29 Other chronic pain; M12.9 Arthropathy, unspecified; D50.9 Iron deficiency anemia, unspecified
CPT/HCPCS: 36415; 80053; 81003; 85027; 86593; 93005; 93010

== ENCOUNTER 2018-11-28 12:09 | Emergency (ER) | payer OTHER ==
[2018-11-28 12:21] VITALS: BP 119/75; PULSE 66; TEMP 98.4; BMI 24.4
--- NOTE | 2018-11-28 12:47 | PDOC ---
History of Present Illness - General Chief Complaint: Chest Pain Stated Complaint: PAIN Time Seen by Provider: 11/28/18 12:43 History Source: Patient - History of Present Illness Presenting Symptoms: Chest Pain Timing/Duration: reports: constant Past History - Past Medical History Allergies/Adverse Reactions: Allergies Allergy/AdvReac Type Severity Reaction Status Date / Time No Known Allergies Allergy Verified 11/28/18 12:17 Home Medications: Ambulatory Orders NK [No Known Home Medication] 06/29/17 Anemia: No Asthma: No Cancer: No Cardiac Disorders: No CVA: No COPD: No CHF: No Diabetes: No GI Disorders: No Disorders: No HTN: No Hypercholesterolemia: No Kidney Stones: No Liver Disease: No Seizures: No Thyroid Disease: No - Surgical History Abdominal Surgery: No Appendectomy: No Cardiac Surgery: No Cholecystectomy: No Lung Surgery: No Neurologic Surgery: No Orthopedic Surgery: No - Reproductive History Testicular Surgery: No - Suicide/Smoking/Psychosocial Hx Smoking History: Former smoker Have you smoked in the past 12 months: No If you are a former smoker, when did you quit?: 24 ys Information on smoking cessation initiated: No 'Breaking Loose' booklet given: 06/24/17 Hx Alcohol Use: No Drug/Substance Use Hx: No Substance Use Type: Alcohol (Started drinking alcohol at age 11, consumes vodka/ rum one fifth & 2x 6pk of beer daily. Last drank on 06/23/17) Hx Substance Use Treatment: Yes (2 previous inpt detox admissions @ [facility]) Cardiac Specific PMH - Complaint Specific PMHX Pacemaker: No Review of Systems - Review of Systems Constitutional: No: Chills, Fever Respiratory: No: Cough, Shortness of Breath Cardiac (ROS): Yes: Chest Pain. No: Lightheadedness, Palpitations, Syncope *Physical Exam - Vital Signs Last Vital Signs Temp Pulse Resp BP Pulse Ox 98.4 F 66 16 119/75 100 11/28/18 12:17 11/28/18 12:17 11/28/18 12:17 11/28/18 12:17 11/28/18 12:17 - Physical Exam General Appearance: Yes: Appropriately Dressed. No: Apparent Distress HEENT: positive: Normal Voice Neck: positive: Supple Respiratory/Chest: positive: Lungs Clear, Normal Breath Sounds. negative: Chest Tender, Respiratory Distress Cardiovascular: positive: Regular Rate, S1, S2 Gastrointestinal/Abdominal: positive: Soft. negative: Tender Extremity: negative: Pedal Edema Integumentary: positive: Dry, Warm Neurologic: positive: Fully Oriented, Alert, Normal Mood/Affect Heart Score/ECG Review - History History: Slightly suspicious - Electrocardiogram EKG: Normal - Age Age: 45-65 - Risk Factors Based on the list above the patient has:: No risk factors known - Troponin Troponin: </= normal limit - Score Heart Score - Total: 1 - ECG Intrepretation Comment:: 11/28/18 13:45 Twelve-lead EKG was performed and reviewed by me. There is normal sinus rhythm with a normal rate. The axis is normal. The intervals are normal. There are no ST or T wave abnormalities. Impression: Normal twelve-lead EKG ED Treatment Course - LABORATORY CBC & Chemistry Diagram: 11/28/18 13:00 11/28/18 13:00 - ADDITIONAL ORDERS Additional order review: Laboratory Results 11/28/18 11/28/18 13:00 13:00 Sodium 138 Potassium 3.9 Chloride 108 H Carbon Dioxide 26 Anion Gap 5 L BUN 22 H Creatinine 0.9 Creat Clearance w eGFR 88.61 Random Glucose 96 Calcium 9.2 Total Bilirubin 1.0 AST 22 ALT 27 Alkaline Phosphatase 133 H Creatine Kinase 117 Troponin I < 0.02 Total Protein 7.4 Albumin 4.0 11/28/18 13:00 RBC 6.03 H MCV 61.5 L MCHC 31.3 L RDW 16.6 H MPV 8.7 Neutrophils % 59.8 Lymphocytes % 34.3 Monocytes % 4.2 Eosinophils % 1.3 Basophils % 0.4 - RADIOLOGY Radiology Studies Ordered: Category Date Time Status CHEST PA & LAT [RAD] Stat Radiology 11/28/18 12:48 Taken Medical Decision Making - Medical Decision Making 11/28/18 12:47 53 yo M, prior ETOH abuse, arthritis to shoulders b/l, told he needed surgery on his L shoulder in near future, f/u with ortho, p/w non-radiating L sided CP x 2-3 weeks, mostly constant, describes as aching in nature w/ no worsening or alleviating factors. No sob, diaphoresis, n/v, palpitations, leg pain/swelling. Pt states current pain does not feel like his chronic L shoulder pain. No known h/o CAD. No obvious RFs for DVT/PE See exam CP Not great story for ACS, unlikely PE or dissection, possible related to chronic L shoulder pain Stable w/ clear chest lungs -ekg -cxr -labs, will only get 1 trop given duration of sxs -anticipate dc w/ pmd f/u 11/28/18 14:55 EKG/XR/labs unremarkable. Heart score low. Stable for discharge to follow-up with PMD *DC/Admit/Observation/Transfer Diagnosis at time of Disposition: Chest pain Qualifiers: Chest pain type: unspecified Qualified Code(s): R07.9 - Chest pain, unspecified - Discharge Dispostion Disposition: HOME Condition at time of disposition: Good - Referrals Referrals: Maycol Laureano MD [Primary Care Provider] - - Patient Instructions Printed Discharge Instructions: DI for Atypical Chest Pain Additional Instructions: The cause of your chest pain is unclear at this time as your labs, EKG and chest x-ray were normal. If symptoms persist, juan follow-up with your PMD Continue follow-up with her orthopedic for your ongoing left shoulder pain - Post Discharge Activity
[2018-11-28 13:38] LABS: BASO % 0.4 % (0-2.0); EOS % 1.3 % (0-4.5); HEMATOCRIT 37.1 % (35.4-49); HEMOGLOBIN 11.6 GM/dL (11.7-16.9); LYMPH % 34.3 % (8-40); MCHC 31.3 g/dl (32.0-35.9); MEAN CELL VOLUME 61.5 fl (80-96); MEAN PLT VOLUME 8.7 fl (7.5-11.1); MONO % 4.2 % (3.8-10.2); NEUT % 59.8 % (42.8-82.8); PLATELET COUNT 166 K/MM3 (134-434); RBC 6.03 M/mm3 (4.00-5.60); RDW 16.6 % (11.9-15.9); WHITE BLOOD COUNT 5.5 K/mm3 (4.0-10.0)
[2018-11-28 13:39] LABS: MCH 19.2 pg (25.7-33.7)
[2018-11-28 14:04] LABS: ALK PHOS 133 U/L (45-117); ANION GAP 5 MMOL/L (8-16); BLOOD UREA NITROGEN 22 mg/dL (7-18); CALCIUM 9.2 mg/dL (8.5-10.1); CHLORIDE 108 mmol/L (98-107); CO2 26 mmol/L (21-32); CREATININE 0.9 mg/dL (0.55-1.3); GLUCOSE,RANDOM 96 mg/dL (74-106); POTASSIUM 3.9 mmol/L (3.5-5.1); SGOT/AST 22 U/L (15-37); SGPT/ALT 27 U/L (13-61); SODIUM 138 mmol/L (136-145); TOT PROT 7.4 g/dl (6.4-8.2)
[2018-11-28 14:51] LABS: ANISOCYTOSIS 2+; MACROCYTOSIS 0; PLATELET ESTIMATE NORMAL; TARGET CELLS 1+; TEAR DROP CELLS 1+
--- NOTE | 2018-11-28 15:36 | EKG ---
Test Reason : Blood Pressure : / mmHG Vent. Rate : 061 BPM Atrial Rate : 061 BPM P-R Int : 140 ms QRS Dur : 102 ms QT Int : 418 ms P-R-T Axes : 057 046 048 degrees QTc Int : 420 ms NORMAL SINUS RHYTHM NORMAL ECG WHEN COMPARED WITH ECG OF 30-JUN-2017 12:28, NO SIGNIFICANT CHANGE WAS FOUND Confirmed by KATALINA CABRAL MD ([id number]) on 11/28/2018 3:36:03 PM Referred By: Confirmed By:KATALINA CABRAL MD
== END 2018-11-28 14:39 | disposition home or self-care (01) ==
LOC: JER 12:09
DX: R07.9 Chest pain, unspecified (principal); M13.812 Other specified arthritis, left shoulder; M13.811 Other specified arthritis, right shoulder
CPT/HCPCS: 36415; 71046-TC-FY; 80053; 82550; 84484; 85025; 93005; 93010; 99282-25